=== PATIENT | male | born 1945 | race Caucasian/White ===

== ENCOUNTER 2021-07-30 06:03 | Inpatient (IN) ==
[2021-07-25 13:09] LABS: Basophils % 0.1 % (0.0-0.8); Eosinophils % 0.3 % (0.00-10.9); Hematocrit 44.8 VOL% (42.0-52.0); Immature Granulocytes % 0.5 %; Immature Granulocytes Absolute 0.04 #; Lymphocytes # 2.3 10*3/uL (1.4-4.0); Mean Corpuscular HGB Conc 31.3 GM/DL (32-36); Mean Corpuscular Volume 86.7 FL (87-102); Mean Platelet Volume 12.4 FL (9.6-12.0); Monocytes % 7.1 % (1.7-12.7); Platelet Count 195 T/CUMM (130-400); Red Blood Count 5.17 MC/CUMM (3.8-5.5); Red Cell Distribution Width 13.7 % (9.3-17.3); White Blood Count 7.9 T/CUMM (4-12)
[2021-07-25 13:20] LABS: INR 0.9; PT Patient Result 10.6 SECS (10.5-12.0); Partial Thromboplastin Time 30.5 SECS (23.8-32.1)
[2021-07-25 13:47] LABS: Alanine Aminotransferase 20 U/L (16-61); Albumin 3.6 G/DL (3.4-5.0); Alkaline Phosphatase 74 U/L (45-117); Aspartate Amino Transferase 13 U/L (0-37); Bilirubin,Total < 0.39 MG/DL (0.20-1.00); Blood Urea Nitrogen 21 MG/DL (7-18); Carbon Dioxide 27 MMOL/L (21-32); Estimated Glom Filtration Rate 51 ML/MIN; Glucose 116 MG/DL (74-106); Osmolality,Calculated 282.4 MOS/KG (273-304); Potassium 4.8 MMOL/L (3.5-5.1); Sodium 140 MMOL/L (136-145); Total Protein 7.1 G/DL (6.4-8.2)
[2021-07-30] MEDS ORDERED: SODIUM PHOSPHATE ENEMA 133 ML BOTTLE RECTAL ONE (06:26)
[2021-07-30] MEDS ORDERED: MIDAZOLAM 2 MG/2 ML VIAL ONE (06:28)
[2021-07-30] MEDS ORDERED: LIDOCAINE 2% 5 ML VIAL ONE (06:28)
[2021-07-30] MEDS ORDERED: propofoL 200 MG/20 ML VIAL IV ONE (06:28)
[2021-07-30] MEDS ORDERED: fentaNYL 250 MCG/5 ML VIAL ONE (06:28)
[2021-07-30] MEDS ORDERED: DEXMEDETOMIDINE 200 MCG/2 ML VIAL ONE (06:28)
[2021-07-30] MEDS ORDERED: ONDANSETRON 4 MG/2 ML VIAL ONE ×2 (06:28→09:45)
[2021-07-30] MEDS ORDERED: DEXAMETHASONE 4 MG/1 ML VIAL ONE ×2 (06:28→06:41)
[2021-07-30] MEDS ORDERED: ROCURONIUM 50 MG/5 ML VIAL IV ONE (06:28)
[2021-07-30] MEDS ORDERED: LACTATED RINGERS 1,000 ML IV SCH (06:30)
[2021-07-30] MEDS ORDERED: ROPIVACAINE 0.5% 30 ML VIAL ONE (06:40)
[2021-07-30] MEDS ORDERED: LIDOCAINE 1% 5 ML VIAL ONE (06:41)
[2021-07-30] MEDS ORDERED: BUPIVACAINE MPF 0.25% 30 ML VIAL ONE (06:41)
[2021-07-30] MEDS ORDERED: cefTRIAXone 1,000 MG in SODIUM CHLORIDE 0.9% 100 ML IV ONE (07:00)
[2021-07-30 08:37] LABS: Amorphous Crystals,Urine Occasional /HPF (Few); Bilirubin,Urine Negative (Negative); Blood, Urine Moderate mg/dL (Negative); Glucose,Urine (UA) Negative (Negative); Ketones,Urine Negative (Negative); Mucus,Urine Occasional /LPF (Occasional); Nitrite,Urine Negative (Negative); Protein,Urine Negative; RBC,Urine 43 /HPF (0-4); Urine Appearance CLEAR (Clear); Urine Color Yellow (Yellow); Urine Specific Gravity 1.017 (1.001-1.035); Urine Urobilinogen < 2.0 EU/DL (<2.0)
[2021-07-30] MEDS ORDERED: ACETAMINOPHEN INJ 1,000 MG/100 ML VIAL IV ONE (09:45)
[2021-07-30] MEDS ORDERED: GLYCOPYRROLATE 0.4 MG/2 ML VIAL ONE ×2 (10:33→10:34)
[2021-07-30] MEDS ORDERED: NEOSTIGMINE 10 MG/10 ML VIAL ONE (10:34)
[2021-07-30] MEDS ORDERED: ONDANSETRON 4 MG/2 ML VIAL IV PRN ×3 (10:42→14:24)
[2021-07-30] MEDS ORDERED: diphenhydrAMINE 50 MG/1 ML VIAL IV PRN ×4 (10:42→14:24)
[2021-07-30] MEDS ORDERED: PROMETHAZINE 25 MG/1 ML VIAL IM PRN (10:42)
[2021-07-30] MEDS ORDERED: oxyCODONE/ACETAMINOPHEN 5-325 MG TABLET PO PRN (10:42)
[2021-07-30] MEDS ORDERED: MAGNESIUM HYDROXIDE SUSP 30 ML UDCUP PO PRN (10:42)
[2021-07-30] MEDS ORDERED: SIMETHICONE CHEW 125 MG TABLET PO PRN (10:42)
[2021-07-30] MEDS ORDERED: HYDROmorphone 2 MG/1 ML VIAL IV PRN ×2 (10:42→11:34)
[2021-07-30] MEDS ORDERED: SEVOFLURANE 1 UNIT/15 MINUTE INH ONE (10:46)
[2021-07-30] MEDS ORDERED: LACTATED RINGERS 1,000 ML IV ONE (10:46)
[2021-07-30] MEDS ORDERED: MEPERIDINE 25 MG/1 ML VIAL IV PRN (11:34)
[2021-07-30] MEDS ORDERED: PROMETHAZINE INJ 25 MG in SODIUM CHLORIDE 0.9% 50 ML IV PRN (11:34)
[2021-07-30] MEDS: SODIUM CHLORIDE 0.9% 1,000 ML IV SCH ×2 (11:42→21:39)
[2021-07-30] MEDS: cefTRIAXone 1,000 MG in SODIUM CHLORIDE 0.9% 100 ML IV SCH (11:42)
[2021-07-30] MEDS: ACETAMINOPHEN 325 MG TABLET PO SCH ×2 (11:45→18:03)
[2021-07-30] MEDS: ALVIMOPAN 12 MG CAPSULE PO SCH ×2 (11:45→21:40)
[2021-07-30 12:17] LABS: Osmolality,Calculated 281.5 MOS/KG (273-304); Potassium 5.4 MMOL/L (3.5-5.1)
[2021-07-30 12:24] LABS: Basophils % 0.1 % (0.0-0.8); Eosinophils % 0.1 % (0.00-10.9); Hematocrit 40.6 VOL% (42.0-52.0); Hemoglobin 12.8 GM/DL (14.0-18.0); Immature Granulocytes % 0.7 %; Immature Granulocytes Absolute 0.06 #; Lymphocytes # 1.1 10*3/uL (1.4-4.0); Lymphocytes % 11.8 % (21.2-54.2); Mean Corpuscular HGB Conc 31.5 GM/DL (32-36); Mean Corpuscular Volume 87.3 FL (87-102); Mean Platelet Volume 12.8 FL (9.6-12.0); Monocytes % 1.8 % (1.7-12.7); Neutrophils % 85.5 % (38.7-73.9); Platelet Count 174 T/CUMM (130-400); Red Blood Count 4.65 MC/CUMM (3.8-5.5); Red Cell Distribution Width 13.6 % (9.3-17.3); White Blood Count 9.2 T/CUMM (4-12)
[2021-07-30] MEDS ORDERED: methylPREDNISolone SOD SUC 125 MG/2 ML VIAL IV PRN (14:24)
[2021-07-30] MEDS ORDERED: ACETAMINOPHEN 325 MG TABLET PO PRN (14:24)
[2021-07-30] MEDS ORDERED: MECLIZINE 25 MG TABLET PO PRN (14:24)
[2021-07-30] MEDS ORDERED: DEXAMETHASONE 4 MG TABLET PO ONE (14:30)
[2021-07-30] MEDS ORDERED: DEXAMETHASONE 4 MG TABLET PO SCH (15:00)
[2021-07-30] MEDS ORDERED: BAMLANIVIMAB 700 MG, ETESEVIMAB 1,400 MG in SODIUM CHLORIDE 0.9% 40 ML IV ONE (15:00)
[2021-07-30] MEDS: OXYBUTYNIN 5 MG TABLET PO SCH ×2 (15:03→21:40)
[2021-07-30] MEDS: ASCORBIC ACID 500 MG TABLET PO SCH ×2 (15:03→21:39)
[2021-07-30] MEDS: ZINC GLUCONATE 50 MG TABLET PO SCH (15:04)
[2021-07-30] MEDS: CHOLECALCIFEROL 1,000 UNIT TABLET PO SCH (15:04)
[2021-07-30] MEDS ORDERED: INFLUENZA VIRUS VACCINE 0.5 ML SYRINGE IM ONE (17:44)
[2021-07-30] MEDS: ATORVASTATIN 10 MG TABLET PO SCH (21:39)
[2021-07-30] MEDS: FAMOTIDINE 20 MG TABLET PO SCH (21:40)
[2021-07-30] MEDS: DOCUSATE SODIUM 100 MG CAPSULE PO SCH (21:40)
[2021-07-31] MEDS: ACETAMINOPHEN 325 MG TABLET PO SCH ×5 (00:34→22:27)
[2021-07-31] MEDS: SODIUM CHLORIDE 0.9% 1,000 ML IV SCH ×2 (03:45→12:24)
[2021-07-31 05:15] LABS: Basophils % 0.1 % (0.0-0.8); Hematocrit 40.2 VOL% (42.0-52.0); Hemoglobin 12.8 GM/DL (14.0-18.0); Immature Granulocytes % 0.4 %; Immature Granulocytes Absolute 0.04 #; Lymphocytes # 1.5 10*3/uL (1.4-4.0); Lymphocytes % 14.5 % (21.2-54.2); Mean Corpuscular HGB Conc 31.8 GM/DL (32-36); Mean Corpuscular Volume 85.7 FL (87-102); Mean Platelet Volume 12.2 FL (9.6-12.0); Platelet Count 162 T/CUMM (130-400); Red Blood Count 4.69 MC/CUMM (3.8-5.5); Red Cell Distribution Width 13.5 % (9.3-17.3); White Blood Count 10.3 T/CUMM (4-12)
[2021-07-31 05:46] LABS: Calcium 8.1 MG/DL (8.5-10.1); Osmolality,Calculated 290.8 MOS/KG (273-304); Potassium 4.2 MMOL/L (3.5-5.1)
[2021-07-31 05:53] LABS: Albumin 2.5 G/DL (3.4-5.0); Bilirubin,Total 0.6 MG/DL (0.20-1.00); Calcium 8.3 MG/DL (8.5-10.1); Ferritin 63.6 ng/mL (26-388); Osmolality,Calculated 287.1 MOS/KG (273-304); Potassium 4.2 MMOL/L (3.5-5.1); Total Protein 6.2 G/DL (6.4-8.2)
[2021-07-31] MEDS ORDERED: DEXAMETHASONE 4 MG/1 ML VIAL IV SCH (09:00)
[2021-07-31] MEDS: OXYBUTYNIN 5 MG TABLET PO SCH ×3 (09:10→21:37)
[2021-07-31] MEDS: NEBIVOLOL 5 MG TABLET PO SCH (09:10)
[2021-07-31] MEDS: amLODIPine 10 MG TABLET PO SCH (09:10)
[2021-07-31] MEDS: FAMOTIDINE 20 MG TABLET PO SCH ×2 (09:10→21:37)
[2021-07-31] MEDS: ALVIMOPAN 12 MG CAPSULE PO SCH ×2 (09:10→21:37)
[2021-07-31] MEDS: CHOLECALCIFEROL 1,000 UNIT TABLET PO SCH (09:10)
[2021-07-31] MEDS: ASCORBIC ACID 500 MG TABLET PO SCH ×2 (09:10→21:36)
[2021-07-31] MEDS: DOCUSATE SODIUM 100 MG CAPSULE PO SCH ×2 (09:10→21:37)
[2021-07-31] MEDS: ZINC GLUCONATE 50 MG TABLET PO SCH (09:10)
[2021-07-31] MEDS: cefTRIAXone 1,000 MG in SODIUM CHLORIDE 0.9% 100 ML IV SCH (13:31)
[2021-07-31] MEDS ORDERED: predniSONE 20 MG TABLET PO SCH (15:00)
[2021-07-31] MEDS ORDERED: ALBUTEROL INHALER 18 GM INH PRN (16:02)
[2021-07-31] MEDS ORDERED: ALBUTEROL 1.25 MG/3 ML NEB RESP TX SCH (19:00)
[2021-07-31] MEDS: ATORVASTATIN 10 MG TABLET PO SCH (21:36)
[2021-07-31] MEDS: FLUTICASONE/SALMETEROL 250-50 DISKUS 14 DOSE INH SCH (23:51)
[2021-07-31] MEDS: ALBUTEROL INHALER 18 GM INH SCH ×2 (23:51)
[2021-08-01] MEDS: ALBUTEROL INHALER 18 GM INH SCH ×4 (03:36→15:29)
[2021-08-01] MEDS: ACETAMINOPHEN 325 MG TABLET PO SCH ×2 (05:05→11:58)
[2021-08-01 05:34] LABS: Basophils % 0.1 % (0.0-0.8); Hematocrit 42.6 VOL% (42.0-52.0); Hemoglobin 13.3 GM/DL (14.0-18.0); Immature Granulocytes % 0.6 %; Immature Granulocytes Absolute 0.09 #; Lymphocytes # 3.8 10*3/uL (1.4-4.0); Mean Corpuscular HGB Conc 31.2 GM/DL (32-36); Mean Corpuscular Volume 87.5 FL (87-102); Mean Platelet Volume 12.1 FL (9.6-12.0); Monocytes % 7.9 % (1.7-12.7); Neutrophils % 66.4 % (38.7-73.9); Platelet Count 180 T/CUMM (130-400); Red Blood Count 4.87 MC/CUMM (3.8-5.5); Red Cell Distribution Width 13.6 % (9.3-17.3)
[2021-08-01 06:03] LABS: Calcium 8.4 MG/DL (8.5-10.1); Osmolality,Calculated 293.4 MOS/KG (273-304); Potassium 3.5 MMOL/L (3.5-5.1)
[2021-08-01] MEDS ORDERED: LACTATED RINGERS 500 ML IV ONE (07:00)
[2021-08-01] MEDS ORDERED: POTASSIUM CHLORIDE 20 MEQ TABLET PO ONE (07:30)
[2021-08-01 08:32] VITALS: BP 167/71
[2021-08-01] MEDS ORDERED: ASPIRIN EC 81 MG TABLET PO SCH (09:00)
[2021-08-01] MEDS: ASCORBIC ACID 500 MG TABLET PO SCH (09:54)
[2021-08-01] MEDS: amLODIPine 10 MG TABLET PO SCH (09:54)
[2021-08-01] MEDS: FLUTICASONE/SALMETEROL 250-50 DISKUS 14 DOSE INH SCH (09:55)
[2021-08-01] MEDS: OXYBUTYNIN 5 MG TABLET PO SCH ×2 (09:55→15:29)
[2021-08-01] MEDS: NEBIVOLOL 5 MG TABLET PO SCH (09:55)
[2021-08-01] MEDS: ZINC GLUCONATE 50 MG TABLET PO SCH (09:55)
[2021-08-01] MEDS: ALVIMOPAN 12 MG CAPSULE PO SCH (09:55)
[2021-08-01] MEDS: DOCUSATE SODIUM 100 MG CAPSULE PO SCH (09:55)
[2021-08-01] MEDS: CHOLECALCIFEROL 1,000 UNIT TABLET PO SCH (09:55)
[2021-08-01] MEDS: FAMOTIDINE 20 MG TABLET PO SCH (09:55)
[2021-08-01] MEDS: cefTRIAXone 1,000 MG in SODIUM CHLORIDE 0.9% 100 ML IV SCH (11:58)
== END 2021-08-01 16:20 | disposition home or self-care (01) | DRG 707 ==
LOC: N.OR 06:03 → N.SDSINP 06:04 → N.3E 12:27
PROVIDERS: ADMIT Surgery; ATTEND Surgery